=== PATIENT | female | born 1980 | race Caucasian/White ===

== ENCOUNTER 2020-07-28 13:00 | Emergency (ER) | payer BC ==
[~2020-07-28] VITALS: Ht 165.1 cm; Wt 86.2 kg
--- NOTE | 2020-07-28 13:30 | NUR ---
PT C/O " SWELLING " LT TEMPORAL AREA & M[place]. PT HAD DENTAL IMPLANT DONE 5 DAYS AGO. PATIENT A/OX4, BREATHING EVEN AND UNLABORED, NO SOB NOTED, NEEDS ATTENDED.
[2020-07-28] MEDS ORDERED: KETOROLAC TROMETHAMINE INJ 30 MG/ML VIAL IV ONE (14:30)
--- NOTE | 2020-07-28 14:30 | NUR ---
PER PATIENT, SHE'S NOT BECAUSE SHE HAD TUBAL LIGATION.
--- NOTE | 2020-07-28 14:32 | NUR ---
IV LINE ESTABLISHED, BLOOD DRAWN AND SENT TO LAB.
[2020-07-28 14:35] LABS: BASOPHILS # (AUTO) 0.1 /CMM (0.0-0.2); BASOPHILS % (AUTO) 1.3 % (0.0-2.0); EOSINOPHILS % (AUTO) 1.3 % (0.0-6.0); HEMATOCRIT 38 % (33-45); LYMPHOCYTES # (AUTO) 2.7 /CMM (0.8-4.8); LYMPHOCYTES % (AUTO) 34.7 % (20.0-44.0); MEAN CORPUSCULAR HGB CONC 34 g/dl (31.0-36.0); MEAN CORPUSCULAR VOLUME 88 fL (82-100); MONOCYTES # (AUTO) 0.5 /CMM (0.1-1.30); NEUTROPHILS # (AUTO) 4.5 /CMM (1.8-8.9); NEUTROPHILS % (AUTO) 56.7 % (43.0-81.0); PLATELET COUNT (AUTO) 314 /CMM (150-450); RED BLOOD CELL COUNT(AUTO) 4.37 MIL/uL (4.0-5.2); WHITE BLOOD COUNT (AUTO) 7.9 K/uL (4.3-11.0)
--- NOTE | 2020-07-28 14:35 | NUR ---
PATIENT WANTS TO HOLD OFF ON THE TORADOL AT THIS TIME.
[2020-07-28 14:47] LABS: CALCIUM, SERUM 9.1 mg/dL (8.5-10.1); CREATININE 0.7 mg/dL (0.6-1.3); POTASSIUM 3.8 mmol/L (3.5-5.1)
[2020-07-28] MEDS ORDERED: IOHEXOL-300 100 ML VIAL IV ONE (15:02)
[2020-07-28] MEDS ORDERED: IV NS 0.9% 250 ML IV ONE (15:02)
[2020-07-28] MEDS ORDERED: CT SWABBABLE VALVE TRANS SET 1 EA INFUS.SET MC ONE (15:02)
--- NOTE | 2020-07-28 15:12 | NUR ---
PATIENT TAKEN TO CT.
[2020-07-28 15:13] LABS: C-REACTIVE PROTEIN 0.9 mg/dL (0.0-0.9)
--- NOTE | 2020-07-28 15:28 | NUR ---
PATIENT CAME BACK FROM CT.
--- NOTE | 2020-07-28 16:10 | NUR ---
PATIENT RESTING, IN BED, DENIES PAIN AT THIS TIME.
[2020-07-28] MEDS ORDERED: CARB200T PO (16:46)
[2020-07-28 17:00] VITALS: BP 135/92
--- NOTE | 2020-07-28 17:00 | NUR ---
Patient a/ox4, breathing even and unlabored, no sob noted. Needs attended. IV removed. Catheter intact and site benign. Pressure and 4x4 applied to site. No bleeding noted.Patient discharged to home in stable condition. Written and verbal after care instructions given. Patient verbalizes understanding of instruction.
== END 2020-07-28 17:01 | disposition home or self-care (01) ==
LOC: ER 13:06
DX: G50.0 Trigeminal neuralgia (principal)
CPT/HCPCS: 36415; 70460; 70481; 80048; 85025; 85652; 86140; 99285; J7050; Q9967